=== PATIENT | female | born 1950 | race Caucasian/White ===

== ENCOUNTER 2018-07-31 13:45 | Inpatient (IN) ==
[2018-07-31] MEDS ORDERED: Morphine Inj 4 MG/ML Vial IV.PUSH ONE (14:15)
--- NOTE | 2018-07-31 14:39 | ED ---
HPI General Chief Complaint: Extremity Injury, Upper Stated Complaint: R wrist Time Seen by Provider: 07/31/18 13:53 Source: patient and family Mode of arrival: wheelchair Limitations: no limitations History of Present Illness HPI narrative: Patient is a 68-year-old female that presents for the evaluation of right wrist and left ankle pain after a fall she sustained this afternoon. The patient states that she was out to lunch with her family when she tripped on the sidewalk and rolled her left ankle laterally and fell onto her right wrist. Patient states that she did hit her head on mulch when she fell and her glasses broke which caused a small abrasion on her right upper cheek. The patient's family was present at the time of the fall and are at the bedside with the patient. They state that the patient did not lose consciousness and was able to get right back up after the fall. The patient states that her current pain level is a 10/10 on a pain scale. She states that she is unable to bare weight on the left ankle. She states that she also has a headache that she believes is due to stress. The patient has a history of migraines and states that her current headache does not feel like a migraine. Upon review of symptoms the patient denies chest pain, shortness of breath, nausea, vomiting, numbness or tingling of the extremities. She denies dizziness, blurry vision, or loss of vision. Related Data Home Medications Medication Instructions Recorded Confirmed aspirin, buffered 325 mg PO DAILY 07/31/18 07/31/18 [id number] 50 mg PO DIRECTED 07/31/18 07/31/18 [Esgic] enalapril maleate [Vasotec] 10 mg PO DAILY 07/31/18 07/31/18 Allergies Allergy/AdvReac Type Severity Reaction Status Date / Time No Known Allergies Allergy Verified 07/31/18 14:00 Review of Systems ROS: all other systems reviewed are negative [facility] Medical History Medical History Aftercare following left ankle joint replacement surgery (Acute) CVA (cerebral vascular accident) (Acute) H/O: hysterectomy (Acute) Hypertension (Acute) Left ankle injury (Acute) Stroke (Acute) TIA (transient ischemic attack) (Acute) Surgical History Surgical History Status post hysterectomy (Acute) Status post right knee replacement (Acute) Family History Family History Other Family history of diabetes mellitus Family history of hypertension Social History Social History Substance History: No History of Abuse Second Hand Smoke Exposure: No Smoking Status: Never smoker How Often Do You Have a Drink Containing Alcohol: Never Hx Recent Travel: Yes (From [place]) Recent Travel in [facility] within the Last 8 Weeks: No Recent Out of Country Travel within the Last 8 Weeks: No Immunization History Tetanus Immunization: >5 Years Exam Narrative Exam Narrative: .GENERAL: Well-appearing SKIN: Focused skin assessment warm/dry. HEAD: Atraumatic. Normocephalic. EYES: Pupils equal and round. No scleral icterus. No injection or drainage. ENT: No nasal bleeding or discharge. Mucous membranes pink and moist. Tongue is midline. No uvula deviation. Patient does have some bruising to the right side of the face. Mainly on the right cheek. She does have a superficial cut less than 1/4 cm. NECK: Trachea midline. No JVD. CARDIOVASCULAR: Regular rate and rhythm. No murmur appreciated. RESPIRATORY: No accessory muscle use. Clear to auscultation. Breath sounds equal bilaterally. GASTROINTESTINAL: Abdomen soft, non-tender, nondistended. Hepatic and splenic margins not palpable. MUSCULOSKELETAL: No obvious deformities. No clubbing. No cyanosis. No edema. Patient has obvious deformity with swelling and deformity to the right wrist especially on the medial aspect of it. She does have also soft tissue swelling and pain to palpation on the left lateral malleolus. No medial malleolar pain. Full range of motion of all extremities otherwise. 2+ pulses bilaterally. No lumbar, thoracic, cervical spine tenderness to palpation. NEUROLOGICAL: Awake and alert. No obvious cranial nerve deficits. Motor grossly within normal limits. Normal speech. PSYCHIATRIC: Appropriate mood and affect; insight and judgment normal. Course Initial Documented Vital Signs Temperature 98 F 07/31/18 13:48 Pulse Rate 99 H 07/31/18 13:48 Respiratory Rate 20 07/31/18 13:48 Blood Pressure 199/98 H 07/31/18 13:48 Pulse Oximetry 99 07/31/18 13:48 Last Documented Vital Signs Temperature 98 F 07/31/18 13:48 Pulse Rate 94 H 07/31/18 16:00 Respiratory Rate 18 07/31/18 16:38 Blood Pressure 146/98 H 07/31/18 16:00 Pulse Oximetry 100 07/31/18 16:18 Procedures Orthopedic Fracture Reduction Fracture #1: Time Out Performed: Yes Side: right Fracture Reduction Location: radius Analgesia: procedural sedation Technique: direct manipulation and traction/counter-traction Post Reduction X-rays Demonstrate: anatomical reduction Post-Reduction Neuro Exam: intact Post-Reduction Vascular Exam: intact Splint Applied: Yes Patient Tolerated Procedure: well Procedural Sedation Indications: fracture/dislocation reduction ASA Class: ASA 2 Moderate Systemic Disease Preparation: awake overnight monitor applied, pulse oximeter, capnometry used, supplemental O2 applied, suction/airway equipment at bedside and IV secured IV Propofol Dose (mgs): 60 Patient Tolerated Procedure: well Complications: none Interventions: oxygen applied Medical Decision Making JORDAN Attestation JORDAN supervised visit: Yes Attestation: I, Dr. White, have reviewed the advance practice practitioner's documentation and am in agreement, met with the patient face to face, made the diagnosis, and the medical decision making was done by me. *My assessment and Findings: Patient is 68 years old and arrives with distal radius fracture somewhat comminuted with intra-articular involvement as well as a distal fibula fracture. Case was discussed with periodontist Dr. Becerra, who confirmed the patient is to be nonweightbearing. This leaves here with a distal radius fracture in a sugar tong splint of the right arm with a long posterior splint in the left leg with inability to weight-bear. She is visiting from out of town. She is otherwise healthy. Blood work here is normal. Distal radius fracture reduced at bedside following procedural sedation. Splint applied to the right upper extremity and left leg. Admission for physical therapy and orthopedic consultation. [facility] Narrative Medical decision making narrative: 68-year-old female that presents to the ED for evaluation of fall. Labs and imaging order. Labs and imaging were essentially unremarkable other than for fractures. Mainly to the ankle as well as to the wrist. My attending Dr. White took over case. He recommends reduction of fracture and admission for further eval as patient will not be able to ambulate without assistance due to having fractures on right wrist and left ankle. Please review my attendings' addition to this note. Patient admitted to Dr Crawford who agrees to admission to his service. Medical Screen Exam Complete: Yes Emergency Medical Condition: Yes Differential Diagnosis Differential Diagnosis: Fracture versus sprain versus strain versus bruise versus contusion Medical Records Medical records reviewed: Yes I reviewed the patient's medical records. Lab Data Lab results reviewed: Yes I reviewed the patient's lab results. Result diagrams: 07/31/18 14:15 07/31/18 14:15 Lab Results 07/31/18 07/31/18 Range/Units 14:15 14:15 WBC 5.4 (4.0-11.0) th/mm3 RBC 4.32 (4.00-5.30) mil/mm3 Hgb 12.0 (11.6-15.3) gm/dL Hct 37.0 (35.0-46.0) % MCV 85.6 (80.0-100.0) fL MCH 27.7 (27.0-34.0) pg MCHC 32.4 (32.0-36.0) % RDW 15.2 (11.6-17.2) % Plt Count 260 (150-450) th/mm3 MPV 7.9 (7.0-11.0) fL Neut % (Auto) 49.2 (16.0-70.0) % Lymph % (Auto) 38.7 (9.0-44.0) % [place] % (Auto) 8.1 H (0.0-8.0) % Eos % (Auto) 3.2 (0.0-4.0) % Baso % (Auto) 0.8 (0.0-2.0) % Neut # (Auto) 2.6 (1.8-7.7) th/mm3 Lymph # (Auto) 2.1 (1.0-4.8) th/mm3 [place] # (Auto) 0.4 (0.0-0.9) th/mm3 Eos # (Auto) 0.2 (0.0-0.4) th/mm3 Baso # (Auto) 0.0 (0.0-0.2) th/mm3 WBC Differential . Differential Comment Auto diff final Sodium 141 (136-145) meq/L Potassium 4.2 (3.5-5.1) meq/L Chloride 106 (98-107) meq/L Carbon Dioxide 25.8 (21.0-32.0) meq/L Anion Gap 9 (5-15) meq/L BUN 11 (7-18) mg/dL Creatinine 0.85 (0.50-1.00) mg/dL Estimated GFR 67 L (>89) mL/min Random Glucose 79 (74-106) mg/dL Calcium 8.6 (8.5-10.1) mg/dL Imaging Data Attestation: I personally reviewed and interpreted this imaging study as follows : Radiologist's impression: Ankle X-Ray 07/31/18 14:03 CONCLUSION: Nondisplaced fracture involving the lateral malleolus with soft tissue swelling. Cervical Spine CT 07/31/18 14:03 CONCLUSION: 1. Negative trauma CT cervical spine. Foot X-Ray 07/31/18 14:03 CONCLUSION: No acute fracture or joint dislocation involving the foot. Nondisplaced fracture involving the lateral malleolus. Hand X-Ray 07/31/18 14:03 CONCLUSION: 1. There is an intra-articular fracture involving the distal radius. 2. No acute fracture or joint dislocation is seen involving the hand. 3. There is osteopenia and degenerative changes noted throughout the hand. Head CT 07/31/18 14:03 CONCLUSION: 1. Unremarkable CT scan of the brain . Wrist X-Ray 07/31/18 14:03 CONCLUSION: There is an intra-articular fracture involving the distal radius. Wrist X-Ray 07/31/18 15:21 CONCLUSION: Status post reduction of the previously noted fracture involving the distal radius. There appears to be good alignment of the fracture fragments. Discharge Plan Discharge Disposition Patient Disposition: 30 Still Patient Discharge Condition Condition: Stable Discharge Details Diagnosis: Fracture of wrist, Ankle fracture, left, Fall Physicians Team ED Provider: Steve White ED Midlevel Provider: Honorio Gong Attending Provider: Reg Crawford Other Providers: Buddy Gong Discharge Interventions Interventions: Vital Signs Last Done: 07/31/18 16:00 Status ED Status: Admitted Observation Patient
--- NOTE | 2018-07-31 15:14 | XR ---
EXAM DATE: 07/31/2018 2:03 PM EDT AGE/SEX: 68 years / Female INDICATIONS: Right hand pain post fall CLINICAL DATA: This is the patient's initial encounter. Patient reports that signs and symptoms have been present for 1 day and indicates a pain score of 7/10. MEDICAL/SURGICAL HISTORY: . Total knee replacement, right. COMPARISON: No prior exams available for comparison. FINDINGS: Of the bony structures. The bony structures of the hand appear to be grossly intact. No acute fractur e or joint dislocation of the hand is seen. There are degenerative changes at the first carpometacarp al joint. There does appear to be a intra-articular fracture involving the distal radius. CONCLUSION: 1. There is an intra-articular fracture involving the distal radius. 2. No acute fracture or joint dislocation is seen involving the hand. 3. There is osteopenia and degenerative changes noted throughout the hand. Electronically signed by: Thuan De La Cruz MD 07/31/2018 3:13 PM EDT
--- NOTE | 2018-07-31 15:15 | XR ---
EXAM DATE: 07/31/2018 2:03 PM EDT AGE/SEX: 68 years / Female INDICATIONS: Right wrist pain, post fall. CLINICAL DATA: This is the patient's initial encounter. Patient reports that signs and symptoms have been present for 1 day and indicates a pain score of 10/10. MEDICAL/SURGICAL HISTORY: . Total knee replacement, right. COMPARISON: [facility], HAND COMPLETE RIGHT MIN 3V, 07/31/2018. . FINDINGS: There is osteopenia of the bony structures of the wrist. There is degenerative changes at the first c arpometacarpal joint. There is a fracture involving the distal radius. This appears to involve the ar ticulating surface. The distal ulnar appears to be grossly intact. No joint dislocation. CONCLUSION: There is an intra-articular fracture involving the distal radius. Electronically signed by: Thuan De La Cruz MD 07/31/2018 3:13 PM EDT
--- NOTE | 2018-07-31 15:20 | XR ---
EXAM DATE: 07/31/2018 2:03 PM EDT AGE/SEX: 68 years / Female INDICATIONS: Right ankle pain post fall CLINICAL DATA: This is the patient's initial encounter. Patient reports that signs and symptoms have been present for 1 day and indicates a pain score of 8/10. MEDICAL/SURGICAL HISTORY: . Total knee replacement, right. COMPARISON: No prior exams available for comparison. FINDINGS: There is diffuse soft tissue swelling over the lateral malleolus. There is a nondisplaced fracture in volving the lateral malleolus. There is good alignment at the mortise joint. There is evidence of a p revious placement of an intramedullary alix in the tibia. The rest of the bony structures are grossly intact. CONCLUSION: Nondisplaced fracture involving the lateral malleolus with soft tissue swelling. Electronically signed by: Thuan De La Cruz MD 07/31/2018 3:19 PM EDT
--- NOTE | 2018-07-31 15:22 | XR ---
EXAM DATE: 07/31/2018 2:03 PM EDT AGE/SEX: 68 years / Female INDICATIONS: Left foot pain, post fall CLINICAL DATA: This is the patient's initial encounter. Patient reports that signs and symptoms have been present for 1 day and indicates a pain score of 8/10. MEDICAL/SURGICAL HISTORY: . Total knee replacement, right. COMPARISON: [facility], ANKLE COMPLETE LEFT MIN 3V, 07/31/2018. . FINDINGS: Bony structures are intact and in normal alignment. Osseous density is osteopenic.. Soft tissues of the foot are unremarkable. There is soft tissue swelling along the lateral malleolus. No radiopaque f oreign bodies seen. There is a fracture involving the lateral malleolus. CONCLUSION: No acute fracture or joint dislocation involving the foot. Nondisplaced fracture involving the lateral malleolus. Electronically signed by: Thuan De La Cruz MD 07/31/2018 3:21 PM EDT
[2018-07-31 15:51] LABS: Baso % (Auto) 0.8 % (0.0-2.0); Eos # (Auto) 0.2 th/mm3 (0.0-0.4); Eos % (Auto) 3.2 % (0.0-4.0); Lymph # (Auto) 2.1 th/mm3 (1.0-4.8); Lymph % (Auto) 38.7 % (9.0-44.0); Mean Corpuscular HGB Conc 32.4 % (32.0-36.0); Mean Corpuscular Hemoglobin 27.7 pg (27.0-34.0); Mean Corpuscular Volume 85.6 fL (80.0-100.0); Mean Platelet Volume 7.9 fL (7.0-11.0); Mono # (Auto) 0.4 th/mm3 (0.0-0.9); Mono % (Auto) 8.1 % (0.0-8.0); Neut # (Auto) 2.6 th/mm3 (1.8-7.7); Neut % (Auto) 49.2 % (16.0-70.0); Platelet Count 260 th/mm3 (150-450); Red Blood Count 4.32 mil/mm3 (4.00-5.30); Red Cell Distribution Width 15.2 % (11.6-17.2); White Blood Count 5.4 th/mm3 (4.0-11.0)
[2018-07-31 16:18] LABS: Calcium 8.6 mg/dL (8.5-10.1); Carbon Dioxide 25.8 meq/L (21.0-32.0); Potassium 4.2 meq/L (3.5-5.1)
[2018-07-31] MEDS ORDERED: HYDROmorphone PF Inj 2 MG/ML Vial IV.PUSH ONE (16:28)
--- NOTE | 2018-07-31 16:54 | XR ---
EXAM DATE: 07/31/2018 3:21 PM EDT AGE/SEX: 68 years / Female INDICATIONS: Post reduction. CLINICAL DATA: This is the patient's initial encounter. Patient reports that signs and symptoms have been present for 1 day and indicates a pain score of 5/10. MEDICAL/SURGICAL HISTORY: None. None. COMPARISON: [facility] [place], WRIST COMPLETE RIGHT MIN 3V, 07/31/2018. . FINDINGS: There is now overlying cast material in the region of the wrist. There is improved alignment of the f racture fragments involving the distal radius compared to the prior exam.. There is good alignment at the radial carpal joint. CONCLUSION: Status post reduction of the previously noted fracture involving the distal radius. There appears to be good alignment of the fracture fragments. Electronically signed by: Thuan De La Cruz MD 07/31/2018 4:53 PM EDT
--- NOTE | 2018-07-31 17:14 | CT ---
EXAM DATE: 07/31/2018 3:27 PM EDT AGE/SEX: 68 years / Female INDICATIONS: Tripped and fell. Right forehead bruising. CLINICAL DATA: This is the patient's initial encounter. Patient reports that signs and symptoms have been present for 1 day and indicates a pain score of 10/10. MEDICAL/SURGICAL HISTORY: Hypertension. Hysterectomy. RADIATION DOSE: 66.34 CTDI (mGy) COMPARISON: No prior exams available for comparison. TECHNIQUE: CT of the head without contrast. Using automated exposure control and adjustment of the mA and/or kV according to patient size, radiation dose was kept as low as reasonably achievable to ob tain optimal diagnostic quality images. DICOM format image data is available electronically for revi ew and comparison. FINDINGS: Cerebrum: The ventricles are normal for age. No evidence of midline shift, mass lesion, hemorrhage or acute infarction. No extraaxial fluid collections are seen. Posterior Fossa: The cerebellum and brainstem are intact. The 4th ventricle is midline. The cerebe llopontine angle is unremarkable. Extracranial: The visualized portion of the orbits is intact. Skull: The calvaria is intact. No evidence of skull fracture. CONCLUSION: 1. Unremarkable CT scan of the brain . Electronically signed by: Thuan De La Cruz MD 07/31/2018 5:12 PM EDT
--- NOTE | 2018-07-31 17:22 | CT ---
EXAM DATE: 07/31/2018 3:27 PM EDT AGE/SEX: 68 years / Female INDICATIONS: Tripped and fell. Neck pain. CLINICAL DATA: This is the patient's initial encounter. Patient reports that signs and symptoms have been present for 1 day and indicates a pain score of 10/10. MEDICAL/SURGICAL HISTORY: Hypertension. Hysterectomy. RADIATION DOSE: 20.59 CTDI (mGy) COMPARISON: No prior exams available for comparison. TECHNIQUE: Contiguous axial images were obtained using helical multirow detector technique. The vol umetric data was post-processed with multiplanar reconstruction in oblique axial, sagittal, and coron al planes. Using automated exposure control and adjustment of the mA and/or kV according to patient s ize, radiation dose was kept as low as reasonably achievable to obtain optimal diagnostic quality carolyn ges. DICOM format image data is available electronically for review and comparison. FINDINGS: There is normal alignment of vertebral bodies of the cervical spine and preservation of vertebral viky dy height. No evidence of compression deformity or spondylolisthesis. The atlantoaxial articulation i s intact. The posterior elements are in normal alignment without evidence of locked or perched facets . Mild discogenic degenerative changes are present on the right side at C5-6. C2-3: No fracture seen. The neural foramina are patent. C3-4: No fracture seen. The neural foramina are patent. C4-5: No fracture seen. The neural foramina are patent. C5-6: No fracture seen. The neural foramina are patent. C6-7: No fracture seen. The neural foramina are patent. C7-T1: No fracture seen. The neural foramina are patent. CONCLUSION: 1. Negative trauma CT cervical spine. Electronically signed by: Terry Mcconnell MD 07/31/2018 5:20 PM EDT
[2018-07-31] MEDS ORDERED: Acetaminophen 325 MG Tablet PO PRN ×2 (18:20→18:24)
[2018-07-31] MEDS ORDERED: Bisacodyl 10 MG Supp RECTAL PRN (18:20)
[2018-07-31] MEDS ORDERED: Naloxone Inj 0.4 MG/ML Vial IV.PUSH PRN (18:24)
[2018-07-31] MEDS ORDERED: Morphine Inj 4 MG/ML Vial IV.PUSH PRN ×2 (18:24)
--- NOTE | 2018-07-31 18:40 | P.HPIM ---
History of Present Illness Service: [facility] Primary Care Physician: Kai Ernst Chief Complaint: SP FALL WITH FRACTURE OF RIGHT WRIST AND LEFT ANKLE History of Present Illness: Patient is a 68-year-old female visiting us from [facility]. Who presented to the emergency department after a trip and fall she fell on the right wrist and left ankle pain after falling this afternoon outside the [employer]. Patient states she was going out to lunch with the family when she tripped on the sidewalk rolled her left ankle laterally and fell onto her right wrist. Patient states that she did hit her head on the mulch when she fell and her glasses broke which caused a small abrasion on her right upper cheek. Patient's family was present at the time of the fall. Patient did not lose consciousness was able to get right back up but then pain was 10 out of 10 was on in the a.m. unable to bear weight on her left ankle. Also has a headache. Has history of migraines. Denies any chest pain denies any shortness of breath denies any nausea denies any vomiting denied any nausea nausea denies any numbness or tingling of the extremities. Denies any dizziness or blurry vision or loss of vision Patient states that her mother had diabetes and hypertension Review of Systems All other systems reviewed negative except as stated in HPI PMFSH - History History Provided By: Patient - Medical History Medical History: Medical History (Last Updated 07/31/18 @ 18:34 by Reg Crawford DO) Aftercare following left ankle joint replacement surgery CVA (cerebral vascular accident) H/O: hysterectomy Hypertension Left ankle injury Stroke TIA (transient ischemic attack) - Surgical History Surgical History: Surgical History (Last Updated 07/31/18 @ 18:34 by Reg Crawford DO) Status post hysterectomy Status post right knee replacement - Family History Family History: Family History (Last Updated 07/31/18 @ 18:34 by Reg Crawford DO) Other Family history of diabetes mellitus Family history of hypertension - Social History I have reviewed the patient's Social History: No - Tobacco History Second Hand Smoke Exposure: No Tobacco Use In Past 30 Days: No Smoking Status: Never smoker - Alcohol History How Often Do You Have a Drink Containing Alcohol: Never - Substance Use History Substance History: No History of Abuse - Travel History History of Recent Travel: Yes (From [place]) Recent Travel in the [facility] Within the Last 8 Weeks: No Recent Travel Out of the Country Within the Last 8 Weeks: No - Immunization History Tetanus Immunization: >5 Years Medications and Allergies Active Medications: Active Medications Acetaminophen (Tylenol) 650 mg PO Q4H PRN PRN Reason: Temp > 100.4 Acetaminophen (Tylenol) 650 mg PO Q6H PRN PRN Reason: PAIN SCALE 1 TO 2 Al Hydroxide/Mg Hydroxide (Milk Of Magnesia Liq) 30 ml PO Q12H PRN PRN Reason: Mild Constipation Bisacodyl (Dulcolax Supp) 10 mg RECTAL DAILY PRN PRN Reason: SEVERE CONSITIPATION Enalapril Maleate (Vasotec) 10 mg PO DAILY [facility] Sodium Chloride (Ns Inj) 1,000 mls @ 100 mls/hr IV.CONT .Q10H [facility] Lactulose (Lactulose Liq) 30 ml PO DAILY PRN PRN Reason: SEVERE CONSITIPATION Morphine Sulfate (Morphine Inj) 2 mg IV.PUSH Q3H PRN PRN Reason: PAIN 3-5; IF UABLE TO TAKE PO Morphine Sulfate (Morphine Inj) 4 mg IV.PUSH Q3H PRN PRN Reason: PAIN 6-10;IF UNABLE TO TAKE PO Morphine Sulfate (Morphine Inj) 4 mg IV.PUSH Q3H PRN PRN Reason: BREAKTHROUGH PAIN Morphine Sulfate (Morphine Inj) 4 mg IV.PUSH Q1H PRN PRN Reason: Pain Scale 7-10 (Intractable) Naloxone HCl (Narcan Inj) 0.4 mg IV.PUSH UNSCH PRN PRN Reason: SEE LABEL COMMENTS Non-Formulary Medication (Uxdqvckxkb-Bkiphfiyoloio-Yhzj [Esgic]) 50 mg PO DIRECTED [facility] Ondansetron HCl (Zofran Inj) 4 mg IV.PUSH Q6H PRN PRN Reason: NAUSEA OR VOMITING Oxycodone/Acetaminophen (Percocet 10/325 Mg) 1 tab PO Q6H PRN PRN Reason: PAIN SCALE 6 TO 10 Oxycodone/Acetaminophen (Percocet 5/325 Mg) 1 tab PO Q6H PRN PRN Reason: PAIN SCALE 3 TO 5 Senna/Docusate Sodium (Ella-Colace) 1 tab PO BID [facility] Sennosides (Senokot) 17.2 mg PO Q12H PRN PRN Reason: Moderate Constipation Allergies Allergy/AdvReac Type Severity Reaction Status Date / Time No Known Allergies Allergy Verified 07/31/18 14:00 Home Medications Medication Instructions Recorded Confirmed Type aspirin, buffered 325 mg PO DAILY 07/31/18 07/31/18 History shxmmeyowo-gofiivysmkojx-iyxr 50 mg PO DIRECTED 07/31/18 07/31/18 History [Esgic] enalapril maleate [Vasotec] 10 mg PO DAILY 07/31/18 07/31/18 History Exam Vital signs: Vital Signs 07/31/18 13:48 07/31/18 14:05 07/31/18 16:00 Temperature 98 F Pulse Rate 99 H 96 H 94 H Respiratory Rate 20 18 18 Blood Pressure 199/98 H 159/72 H 146/98 H Pulse Oximetry 99 96 97 07/31/18 16:18 07/31/18 16:38 Temperature Pulse Rate Respiratory Rate 18 Blood Pressure Pulse Oximetry 100 Intake & Output 07/30/18 07/31/18 07/31/18 18:59 06:59 18:59 Weight 81.647 kg Narrative: GENERAL: Awake alert oriented x3 talkative and cooperative SKIN: Warm and dry. HEAD: Atraumatic. Normocephalic. EYES: Pupils equal and round. No scleral icterus. No injection or drainage. ENT: No nasal bleeding or discharge. Mucous membranes pink and moist. NECK: Trachea midline. No JVD. CARDIOVASCULAR: Regular rate and rhythm. S1-S2 no S3-S4 RESPIRATORY: No accessory muscle use. Clear to auscultation. Breath sounds equal bilaterally. GASTROINTESTINAL: Abdomen soft, non-tender, nondistended. Hepatic and splenic margins not palpable. Obese MUSCULOSKELETAL: Extremities without clubbing, cyanosis, or edema. No obvious deformities. Right wrist is dressed in splint and wrapped. Left ankle is wrapped with splint also NEUROLOGICAL: Awake and alert. No obvious cranial nerve deficits. Motor grossly within normal limits. Five out of 5 muscle strength in the arms and legs. Normal speech. PSYCHIATRIC: Appropriate mood and affect; insight and judgment normal. Results - Labs CBC & Chem 7: 07/31/18 14:15 07/31/18 14:15 Labs: Short CBC 07/31/18 Range/Units 14:15 WBC 5.4 (4.0-11.0) th/mm3 Hgb 12.0 (11.6-15.3) gm/dL Hct 37.0 (35.0-46.0) % Plt Count 260 (150-450) th/mm3 BMP 07/31/18 14:15 Sodium 141 Potassium 4.2 Chloride 106 Carbon Dioxide 25.8 BUN 11 Creatinine 0.85 Calcium 8.6 - Imaging Impressions Ankle X-Ray 07/31/18 14:03 CONCLUSION: Nondisplaced fracture involving the lateral malleolus with soft tissue swelling. Cervical Spine CT 07/31/18 14:03 CONCLUSION: 1. Negative trauma CT cervical spine. Foot X-Ray 07/31/18 14:03 CONCLUSION: No acute fracture or joint dislocation involving the foot. Nondisplaced fracture involving the lateral malleolus. Hand X-Ray 07/31/18 14:03 CONCLUSION: 1. There is an intra-articular fracture involving the distal radius. 2. No acute fracture or joint dislocation is seen involving the hand. 3. There is osteopenia and degenerative changes noted throughout the hand. Head CT 07/31/18 14:03 CONCLUSION: 1. Unremarkable CT scan of the brain . Wrist X-Ray 07/31/18 14:03 CONCLUSION: There is an intra-articular fracture involving the distal radius. Wrist X-Ray 07/31/18 15:21 CONCLUSION: Status post reduction of the previously noted fracture involving the distal radius. There appears to be good alignment of the fracture fragments. Caprini VTE Risk Assessment Caprini VTE Risk Assessment: Moderate/High Risk (score >= 2) Caprini Risk Assessment Model: Point Value = 1 Point Value = 2 Point Value = 3 Point Value = 5 Age 41-60 Minor surgery BMI > 25 kg/m2 Swollen legs Varicose veins or History of unexplained or recurrent spontaneous Oral contraceptives or hormone replacement Sepsis (< 1 month) Serious lung disease, including pneumonia (< 1 month) Abnormal pulmonary function Acute myocardial infarction Congestive heart failure (< 1 month) History of inflammatory bowel disease Medical patient at bed rest Age 61-74 Arthroscopic surgery Major open surgery (> 45 min) Laparoscopic surgery (> 45 min) Malignancy Confined to bed (> 72 hours) Immobilizing plaster cast Central venous access Age >= 75 History of VTE Family history of VTE Factor V Leiden Prothrombin [id number] Lupus anticoagulant Anticardiolipin antibodies Elevated serum homocysteine Heparin-induced thrombocytopenia Other congenital or acquired thrombophilia Stroke (< 1 month) Elective arthroplasty Hip, pelvis, or leg fracture Acute spinal cord injury (< 1 month) Prophylaxis Regimen: Total Risk Factor Score Risk Level Prophylaxis Regimen 0-1 Low Early ambulation 2 Moderate Order ONE of the following: *Sequential Compression Device (SCD) *Heparin 5000 units SQ BID 3-4 Higher Order ONE of the following medications: *Heparin 5000 units SQ TID *Enoxaparin/Lovenox 40 mg SQ daily (WT < 150 kg, CrCl > 30 mL/min) *Enoxaparin/Lovenox 30 mg SQ daily (WT < 150 kg, CrCl > 10-29 mL/min) *Enoxaparin/Lovenox 30 mg SQ BID (WT < 150 kg, CrCl > 30 mL/min) AND/OR *Sequential Compression Device (SCD) 5 or more Highest Order ONE of the following medications: *Heparin 5000 units SQ TID (Preferred with Epidurals) *Enoxaparin/Lovenox 40 mg SQ daily (WT < 150 kg, CrCl > 30 mL/min) *Enoxaparin/Lovenox 30 mg SQ daily (WT < 150 kg, CrCl > 10-29 mL/min) *Enoxaparin/Lovenox 30 mg SQ BID (WT < 150 kg, CrCl > 30 mL/min) AND *Sequential Compression Device (SCD) Assessment and Plan - Plan Status post fall due to trip and fall -No obvious syncope Mechanical fall Fracture of right radius status post reduction in the emergency department will consult orthopedics Pain control N.p.o. after midnight in case surgery Fluids Left ankle fracture consult orthopedic surgery Pain control N.p.o. after midnight in case of surgery Fluids Hypertension resume home medications History of CVA/TIA/"brain bleed" hold the aspirin at this time Headaches chronically on Esgic-Plus as needed History of left ankle fracture before with repair in the past Status post hysterectomy at age 32 Pain control DVT and GI prophylaxis GI prophylaxis with Pepcid DVT prophylaxis with SCDs and LAYA hose due to possible need for surgery tomorrow Code Status: Full code Discussed Condition With: RN and patient and family and emergency room PA Discharge Planning: Pending orthopedic intervention and clearance by orthopedics and input from case management and physical therapy and Occupational Therapy
[2018-07-31] MEDS ORDERED: Butalbital/APAP/Caff 50/325/40 MG Tablet PO PRN (18:45)
[2018-07-31] MEDS: Sod Chloride 0.9% Inj 1,000 ML IV.CONT SCH (18:50)
--- NOTE | 2018-07-31 19:03 | XR ---
EXAM DATE: 07/31/2018 12:00 AM EDT AGE/SEX: 68 years / Female INDICATIONS: Cough CLINICAL DATA: This is the patient's initial encounter. Patient reports that signs and symptoms have been present for 1 day and indicates a pain score of 0/10. MEDICAL/SURGICAL HISTORY: None. Total knee replacement, right. COMPARISON: No prior exams available for comparison. FINDINGS: Frontal view of the chest demonstrates an ill-defined area of opacity in the left costophrenic angle causing a loss of delineation of a portion of the lateral left hemidiaphragm. The right lung is clear . The heart is normal in size. Mild tortuosity descending thoracic aorta. CONCLUSION: Subsegmental infiltrate lower lateral left lung. Electronically signed by: Terry Mcconnell MD 07/31/2018 7:02 PM EDT
[2018-07-31 20:03] LABS: Bacteria,Urine Occasional /hpf; Bilirubin,Urine Negative (Negative); Clarity,Urine Clear (Clear); Color,Urine Straw (Yellw/Straw); Glucose,Urine (UA) Negative (Negative); Leukocyte Esterase,Urine Negative (Negative); Nitrite,Urine Negative (Negative); Specific Gravity,Urine 1.005 (1.002-1.035); Squamous Epithelial Cell,Urine 1 /hpf (0-5)
[2018-07-31] MEDS: Morphine Inj 4 MG/ML Vial IV.PUSH PRN (21:17)
[2018-07-31] MEDS: Famotidine 20 MG Tablet PO SCH (21:17)
[2018-07-31] MEDS: Senna/Docusate Sodium 8.6/50 MG Tablet PO SCH (21:18)
[2018-07-31] MEDS: oxyCODONE/Acetaminophen 10/325 Tablet PO PRN (22:17)
[2018-08-01] MEDS: Morphine Inj 4 MG/ML Vial IV.PUSH PRN ×2 (00:27→04:38)
[2018-08-01 00:30] VITALS: RESP 18
[2018-08-01 04:34] LABS: Baso # (Auto) 0.1 th/mm3 (0.0-0.2); Baso % (Auto) 2.2 % (0.0-2.0); Eos # (Auto) 0.1 th/mm3 (0.0-0.4); Eos % (Auto) 2.4 % (0.0-4.0); Hemoglobin 11.3 gm/dL (11.6-15.3); Lymph # (Auto) 1.5 th/mm3 (1.0-4.8); Lymph % (Auto) 27.1 % (9.0-44.0); Mean Corpuscular HGB Conc 32.3 % (32.0-36.0); Mean Corpuscular Hemoglobin 28.1 pg (27.0-34.0); Mean Platelet Volume 7.4 fL (7.0-11.0); Mono # (Auto) 0.4 th/mm3 (0.0-0.9); Mono % (Auto) 6.9 % (0.0-8.0); Neut # (Auto) 3.4 th/mm3 (1.8-7.7); Neut % (Auto) 61.4 % (16.0-70.0); Platelet Count 227 th/mm3 (150-450); Red Blood Count 4.02 mil/mm3 (4.00-5.30); Red Cell Distribution Width 15.6 % (11.6-17.2); White Blood Count 5.5 th/mm3 (4.0-11.0)
[2018-08-01 04:42] LABS: INR 1.1 Ratio; Prothrombin Time 10.9 sec (9.8-11.6)
[2018-08-01] MEDS: Sod Chloride 0.9% Inj 1,000 ML IV.CONT SCH (04:44)
[2018-08-01 04:59] LABS: Albumin 3.1 g/dL (3.4-5.0); Anion Gap 9 meq/L (5-15); Blood Urea Nitrogen 7 mg/dL (7-18); Calcium 7.8 mg/dL (8.5-10.1); Carbon Dioxide 24.4 meq/L (21.0-32.0); Chloride 107 meq/L (98-107); Glomerular Filtration Rate 62 mL/min (>89); Glucose,Random 106 mg/dL (74-106); Magnesium 2.1 mg/dL (1.5-2.5); Potassium 4.4 meq/L (3.5-5.1); Sodium 140 meq/L (136-145)
[2018-08-01] MEDS ORDERED: Chlorhexidine Gluconate 2% 1 Pack (2 Cloths) TOPICAL ONE (04:59)
[2018-08-01 05:00] LABS: Alanine Aminotransferase 18 U/L (10-53); Aspartate Aminotransferase 17 U/L (15-37); Cholesterol 195 mg/dL (120-200); Triglycerides 156 mg/dL (42-150)
[2018-08-01] MEDS ORDERED: Sodium Chlor 0.9% Inj 500 ML IV.SIG SCH (05:00)
[2018-08-01 05:09] LABS: Alkaline Phosphatase 141 U/L (45-117); Chol/HDL Ratio 2.91 Ratio; Free T4 (Free Thyroxine) 0.59 ng/dL (0.76-1.46); LDL Cholesterol,Calculated 97 mg/dL (0-99); Total Protein 6.7 g/dL (6.4-8.2)
[2018-08-01 05:27] LABS: Platelet Estimate Normal (Normal); Platelet Morphology Normal (Normal); RBC Morphology Normal (Normal)
--- NOTE | 2018-08-01 07:28 | P.CONOP ---
[facility] Orthopedics Consult Note - [facility] Consult date: 08/01/18 Consult reason: fracture Chief complaint: LEFT ANKLE FRACTURE, RIGHT WRIST FRACTURE Narrative: Patient is a 68-year-old white female who presents to the hospital after suffering a fall. She states she twisted her ankle and fell and landed on her right wrist. She reports left ankle pain and right wrist pain. She states that she is visiting from [place]. She reports a history of a left tibial fracture which required intramedullary nailing. Overall she states she is resting comfortably. She denies any numbness, tingling, loss of sensation. Denies any shortness of breath or loss of consciousness. Denies any fevers. States that the pain is primarily in her left ankle and right wrist. She states she has been unable to ambulate since the incident. Overall, she is resting comfortably. <Vernon Diallo - Last Filed: 08/01/18 07:22> Review of Systems Patient denies any fevers, weight loss, headache, visual changes, hearing loss, chest pain, palpitations, shortness of breath, nausea, vomiting, urinary changes , neck or back pain, skin rashes, weakness or numbness of extremities, or depression. All other systems reviewed negative except as stated in [facility] <Vernon Diallo - Last Filed: 08/01/18 07:22> [facility] - History History Provided By: Patient - Medical History Medical History: Medical History (Last Reviewed 08/01/18 @ 07:24 by JUAN Potts) Aftercare following left ankle joint replacement surgery CVA (cerebral vascular accident) H/O: hysterectomy Hypertension Left ankle injury Stroke TIA (transient ischemic attack) - Surgical History Surgical History: Surgical History (Last Reviewed 08/01/18 @ 07:24 by JUAN Potts) Status post hysterectomy Status post right knee replacement - Family History Family History: Family History (Last Reviewed 08/01/18 @ 07:24 by JUAN Potts) Other Family history of diabetes mellitus Family history of hypertension - Tobacco History Second Hand Smoke Exposure: No Tobacco Use In Past 30 Days: No Smoking Status: Never smoker - Alcohol History How Often Do You Have a Drink Containing Alcohol: Monthly or less - Substance Use History Substance History: No History of Abuse - Travel History History of Recent Travel: Yes (From [place]) Recent Travel in the [place] Within the Last 8 Weeks: No Recent Travel Out of the Country Within the Last 8 Weeks: No - Immunization History Tetanus Immunization: Unsure Hx Influenza Vaccine This Season: No <Vernon Diallo - Last Filed: 08/01/18 07:22> - Medical History Medical History: Medical History (Last Reviewed 08/01/18 @ 07:24 by JUAN Potts) Aftercare following left ankle joint replacement surgery CVA (cerebral vascular accident) H/O: hysterectomy Hypertension Left ankle injury Stroke TIA (transient ischemic attack) - Surgical History Surgical History: Surgical History (Last Reviewed 08/01/18 @ 07:24 by JUAN Potts) Status post hysterectomy Status post right knee replacement - Family History Family History: Family History (Last Reviewed 08/01/18 @ 07:24 by JUAN Potts) Other Family history of diabetes mellitus Family history of hypertension <Jaron Mccain - Last Filed: 08/02/18 08:51> Medications and Allergies Active Medications: Active Medications Acetaminophen (Tylenol) 650 mg PO Q4H PRN PRN Reason: Temp > 100.4 Acetaminophen (Tylenol) 650 mg PO Q6H PRN PRN Reason: PAIN SCALE 1 TO 2 Acetaminophen/Butalbital/Caffeine (Fioricet 50-325-40) 1 tab PO Q6H PRN PRN Reason: HEADACHE Al Hydroxide/Mg Hydroxide (Milk Of Magnesia Liq) 30 ml PO Q12H PRN PRN Reason: Mild Constipation Bisacodyl (Dulcolax Supp) 10 mg RECTAL DAILY PRN PRN Reason: SEVERE CONSITIPATION Enalapril Maleate (Vasotec) 10 mg PO DAILY [facility] Famotidine (Pepcid) 20 mg PO BID [facility] Last Admin: 07/31/18 21:17 Dose: 20 mg Sodium Chloride (Ns Inj) 1,000 mls @ 100 mls/hr IV.CONT .Q10H [facility] Last Admin: 08/01/18 04:44 Dose: Not Given Lactated Ringer's (Lr 1000 Ml Inj) 1,000 mls @ 30 mls/hr IV.SIG .Q24H [facility]OR[facility] Stop: 08/02/18 04:59 Sodium Chloride (Ns Inj) 500 mls @ 30 mls/hr IV.SIG .Q10H [facility] Lactulose (Lactulose Liq) 30 ml PO DAILY PRN PRN Reason: SEVERE CONSITIPATION Morphine Sulfate (Morphine Inj) 2 mg IV.PUSH Q3H PRN PRN Reason: PAIN 3-5; IF UABLE TO TAKE PO Morphine Sulfate (Morphine Inj) 4 mg IV.PUSH Q3H PRN PRN Reason: PAIN 6-10;IF UNABLE TO TAKE PO Last Admin: 08/01/18 04:38 Dose: 4 mg Morphine Sulfate (Morphine Inj) 4 mg IV.PUSH Q3H PRN PRN Reason: BREAKTHROUGH PAIN Morphine Sulfate (Morphine Inj) 4 mg IV.PUSH Q1H PRN PRN Reason: Pain Scale 7-10 (Intractable) Naloxone HCl (Narcan Inj) 0.4 mg IV.PUSH UNSCH PRN PRN Reason: SEE LABEL COMMENTS Ondansetron HCl (Zofran Inj) 4 mg IV.PUSH Q6H PRN PRN Reason: NAUSEA OR VOMITING Oxycodone/Acetaminophen (Percocet 10/325 Mg) 1 tab PO Q6H PRN PRN Reason: PAIN SCALE 6 TO 10 Last Admin: 07/31/18 22:17 Dose: 1 tab Oxycodone/Acetaminophen (Percocet 5/325 Mg) 1 tab PO Q6H PRN PRN Reason: PAIN SCALE 3 TO 5 Senna/Docusate Sodium (Ella-Colace) 1 tab PO BID [facility] Last Admin: 07/31/18 21:18 Dose: Not Given Sennosides (Senokot) 17.2 mg PO Q12H PRN PRN Reason: Moderate Constipation <Vernon Diallo - Last Filed: 08/01/18 07:22> Active Medications: Active Medications Acetaminophen (Tylenol) 650 mg PO Q4H PRN PRN Reason: Temp > 100.4 Acetaminophen (Tylenol) 650 mg PO Q6H PRN PRN Reason: PAIN SCALE 1 TO 2 Acetaminophen/Butalbital/Caffeine (Fioricet 50-325-40) 1 tab PO Q6H PRN PRN Reason: HEADACHE Al Hydroxide/Mg Hydroxide (Milk Of Magnesia Liq) 30 ml PO Q12H PRN PRN Reason: Mild Constipation Bisacodyl (Dulcolax Supp) 10 mg RECTAL DAILY PRN PRN Reason: SEVERE CONSITIPATION Enalapril Maleate (Vasotec) 10 mg PO DAILY [facility] Last Admin: 08/01/18 07:45 Dose: 10 mg Famotidine (Pepcid) 20 mg PO BID [facility] Last Admin: 08/01/18 07:45 Dose: 20 mg Sodium Chloride (Ns Inj) 1,000 mls @ 100 mls/hr IV.CONT .Q10H [facility] Last Infusion: 08/01/18 04:50 Dose: Infused Sodium Chloride (Ns Inj) 500 mls @ 30 mls/hr IV.SIG .Q10H [facility] Last Admin: 08/01/18 10:43 Dose: Not Given Lactulose (Lactulose Liq) 30 ml PO DAILY PRN PRN Reason: SEVERE CONSITIPATION Morphine Sulfate (Morphine Inj) 2 mg IV.PUSH Q3H PRN PRN Reason: PAIN 3-5; IF UABLE TO TAKE PO Last Admin: 08/01/18 14:23 Dose: 2 mg Morphine Sulfate (Morphine Inj) 4 mg IV.PUSH Q3H PRN PRN Reason: PAIN 6-10;IF UNABLE TO TAKE PO Last Admin: 08/01/18 04:38 Dose: 4 mg Morphine Sulfate (Morphine Inj) 4 mg IV.PUSH Q3H PRN PRN Reason: BREAKTHROUGH PAIN Morphine Sulfate (Morphine Inj) 4 mg IV.PUSH Q1H PRN PRN Reason: Pain Scale 7-10 (Intractable) Naloxone HCl (Narcan Inj) 0.4 mg IV.PUSH UNSCH PRN PRN Reason: SEE LABEL COMMENTS Ondansetron HCl (Zofran Inj) 4 mg IV.PUSH Q6H PRN PRN Reason: NAUSEA OR VOMITING Oxycodone/Acetaminophen (Percocet 10/325 Mg) 1 tab PO Q6H PRN PRN Reason: PAIN SCALE 6 TO 10 Last Admin: 08/01/18 13:14 Dose: 1 tab Oxycodone/Acetaminophen (Percocet 5/325 Mg) 1 tab PO Q6H PRN PRN Reason: PAIN SCALE 3 TO 5 Senna/Docusate Sodium (Ella-Colace) 1 tab PO BID [facility] Last Admin: 08/01/18 07:45 Dose: 1 tab Sennosides (Senokot) 17.2 mg PO Q12H PRN PRN Reason: Moderate Constipation <Jaron Mccain - Last Filed: 08/02/18 08:51> Allergies Allergy/AdvReac Type Severity Reaction Status Date / Time Sulfa (Sulfonamide Allergy Anaphylaxis Verified 07/31/18 22:41 Antibiotics) Home Medications Medication Instructions Recorded Confirmed Type aspirin, buffered 325 mg PO DAILY 07/31/18 07/31/18 History hunzivonpj-[id number] 50 mg PO DIRECTED 07/31/18 07/31/18 History [Esgic] enalapril maleate [Vasotec] 10 mg PO DAILY 07/31/18 07/31/18 History Exam Vital signs: Vital Signs 07/31/18 13:48 07/31/18 14:05 07/31/18 16:00 Temperature 98 F Pulse Rate 99 H 96 H 94 H Respiratory Rate 20 18 18 Blood Pressure 199/98 H 159/72 H 146/98 H Pulse Oximetry 99 96 97 07/31/18 16:18 07/31/18 16:38 07/31/18 18:49 Temperature Pulse Rate 93 H Respiratory Rate 18 18 Blood Pressure 116/59 L Pulse Oximetry 100 96 07/31/18 18:50 07/31/18 19:24 07/31/18 20:00 Temperature 98.0 F Pulse Rate 107 H 85 Respiratory Rate 18 18 18 Blood Pressure 117/59 L 139/65 Pulse Oximetry 96 95 07/31/18 21:24 07/31/18 22:47 08/01/18 00:00 Temperature 97.8 F Pulse Rate 98 H Respiratory Rate 19 18 17 Blood Pressure 118/69 Pulse Oximetry 95 08/01/18 00:29 08/01/18 04:00 08/01/18 04:44 Temperature 97.9 F Pulse Rate 86 Respiratory Rate 18 17 18 Blood Pressure 133/58 L Pulse Oximetry 95 Intake & Output 07/31/18 08/01/18 08/01/18 18:59 06:59 18:59 Weight 81.647 kg 81.64 kg Other: # Voids 1 Weight On Admission 81.647 kg Narrative: General: Well-developed and well-nourished. Resting comfortably in no acute distress Head: Normocephalic and atraumatic Ears: Hearing is intact bilaterally Eyes: Extraocular motion is intact. Pupils are equal round and reactive to light. Neck: No evidence of lymphadenopathy Cranial nerve: II-XII grossly intact Lungs: No use of accessory muscles or breathing and no audible wheezes at bedside Heart: No grade 4 murmur present at bedside Abdomen: Soft and nontender. Musculoskeletal: LLE: Short leg splint is present and in good repair. She has good motion of her hip and knee with minimal discomfort. She has full sensation distally with free movement of her toes. RLE: Full movement of the hip, knee, ankle and toes with no pain. Full sensation distally. RUE: Sugar tong splint is present and in good repair. She has noticeable swelling and stiffness of her fingers. However, full sensation in median and ulnar nerve distribution. Full movement of the shoulder with minimal discomfort. LUE: Full movement of the shoulder, elbow, wrist and fingers with minimal discomfort. Full sensation in median and ulnar nerve distribution <Vernon Diallo - Last Filed: 08/01/18 07:22> Vital signs: Vital Signs 08/01/18 09:40 08/01/18 13:29 Temperature 97.9 F Pulse Rate 77 Respiratory Rate 18 Blood Pressure 105/55 L Pulse Oximetry 98 92 L Intake & Output 08/01/18 08/02/18 08/02/18 18:59 06:59 18:59 Other: Date of Last Bowel Movement 07/31/18 <Jaron Mccain - Last Filed: 08/02/18 08:51> Results - Labs Result Diagrams: 08/01/18 04:18 08/01/18 04:18 Labs: Laboratory Results - last 24 hr 07/31/18 07/31/18 07/31/18 14:15 14:15 19:30 WBC 5.4 RBC 4.32 Hgb 12.0 Hct 37.0 MCV 85.6 MCH 27.7 MCHC 32.4 RDW 15.2 Plt Count 260 MPV 7.9 Prelim Diff (Auto) Neut % (Auto) 49.2 Lymph % (Auto) 38.7 [place] % (Auto) 8.1 H Eos % (Auto) 3.2 Baso % (Auto) 0.8 Neut # (Auto) 2.6 Lymph # (Auto) 2.1 [place] # (Auto) 0.4 Eos # (Auto) 0.2 Baso # (Auto) 0.0 WBC Differential . Diff Scan Differential Comment Auto diff final Platelet Estimate Platelet Morphology RBC Morphology PT INR Sodium 141 Potassium 4.2 Chloride 106 Carbon Dioxide 25.8 Anion Gap 9 BUN 11 Creatinine 0.85 Estimated GFR 67 L Random Glucose 79 Calcium 8.6 Phosphorus Magnesium Total Bilirubin AST ALT Alkaline Phosphatase Total Protein Albumin Triglycerides Cholesterol LDL Cholesterol, Calc HDL Cholesterol Cholesterol/HDL Ratio TSH Free T4 Urine Color Straw Urine Clarity Clear Urine pH 5.0 Ur Specific [place] 1.005 Urine Protein Negative Urine Glucose (UA) Negative Urine Ketones Negative Urine Occult Blood Negative Urine Nitrate Negative Urine Bilirubin Negative Urine Urobilinogen Less than 2 Ur Leukocyte Esterase Negative Urine RBC Less than 1 Urine WBC 1 Ur Squamous Epith Cells 1 Urine Bacteria Occasional H Micro UA Comment Culture not ind Ur Microscopic Review Not Reportable Urine Culture Comments Culture not ind 08/01/18 08/01/18 08/01/18 04:18 04:18 04:18 WBC 5.5 RBC 4.02 Hgb 11.3 L Hct 35.0 MCV 87.0 MCH 28.1 MCHC 32.3 RDW 15.6 Plt Count 227 MPV 7.4 Prelim Diff (Auto) Slide review pending Neut % (Auto) 61.4 Lymph % (Auto) 27.1 [place] % (Auto) 6.9 Eos % (Auto) 2.4 Baso % (Auto) 2.2 H Neut # (Auto) 3.4 Lymph # (Auto) 1.5 [place] # (Auto) 0.4 Eos # (Auto) 0.1 Baso # (Auto) 0.1 WBC Differential . Diff Scan Auto diff confirmed Differential Comment . Platelet Estimate Normal Platelet Morphology Normal RBC Morphology Normal PT 10.9 INR 1.1 Sodium 140 Potassium 4.4 Chloride 107 Carbon Dioxide 24.4 Anion Gap 9 BUN 7 Creatinine 0.91 Estimated GFR 62 L Random Glucose 106 Calcium 7.8 L D Phosphorus 3.0 Magnesium 2.1 Total Bilirubin 0.1 L AST 17 ALT 18 Alkaline Phosphatase 141 H Total Protein 6.7 Albumin 3.1 L Triglycerides 156 H Cholesterol 195 LDL Cholesterol, Calc 97 HDL Cholesterol 67.0 H Cholesterol/HDL Ratio 2.91 TSH 12.000 H Free T4 0.59 L Urine Color Urine Clarity Urine pH Ur Specific [place] Urine Protein Urine Glucose (UA) Urine Ketones Urine Occult Blood Urine Nitrate Urine Bilirubin Urine Urobilinogen Ur Leukocyte Esterase Urine RBC Urine WBC Ur Squamous Epith Cells Urine Bacteria Micro UA Comment Ur Microscopic Review Urine Culture Comments - Diagnostic results Imaging: Impressions Chest X-Ray 07/31/18 00:00 CONCLUSION: Subsegmental infiltrate lower lateral left lung. Ankle X-Ray 07/31/18 14:03 CONCLUSION: Nondisplaced fracture involving the lateral malleolus with soft tissue swelling. Cervical Spine CT 07/31/18 14:03 CONCLUSION: 1. Negative trauma CT cervical spine. Foot X-Ray 07/31/18 14:03 CONCLUSION: No acute fracture or joint dislocation involving the foot. Nondisplaced fracture involving the lateral malleolus. Hand X-Ray 07/31/18 14:03 CONCLUSION: 1. There is an intra-articular fracture involving the distal radius. 2. No acute fracture or joint dislocation is seen involving the hand. 3. There is osteopenia and degenerative changes noted throughout the hand. Head CT 07/31/18 14:03 CONCLUSION: 1. Unremarkable CT scan of the brain . Wrist X-Ray 07/31/18 14:03 CONCLUSION: There is an intra-articular fracture involving the distal radius. Wrist X-Ray 07/31/18 15:21 CONCLUSION: Status post reduction of the previously noted fracture involving the distal radius. There appears to be good alignment of the fracture fragments. Wrist/Hand x-ray: image reviewed Ankle/Foot x-ray: image reviewed <Vernon Diallo - Last Filed: 08/01/18 07:22> - Labs Result Diagrams: 08/01/18 04:18 08/01/18 04:18 Labs: Laboratory Results - last 24 hr 08/01/18 04:18 Hemoglobin A1c 5.8 <Jaron Mccain - Last Filed: 08/02/18 08:51> Assessment and Plan - Assessment and Plan 1) Nondisplaced Distal Fibula fracture - nonop 2) Minimally displaced Right Distal Radius fracture - nonop -Treatment options were discussed with the patient. It appears that she is suffered a nondisplaced fracture of her left distal fibula as well as a minimally displaced right distal radius fracture. Overall, these fractures are well aligned and should do well with conservative management. At this point I would recommend that the splint on the left ankle be discontinued and she will be placed into a fracture boot. She will be allowed to fully weight-bear on the left leg while wearing the fracture boot. She will maintain her sugar tong splint on the right wrist. She will remain nonweightbearing to the right wrist. However, she will be able to use a platform walker. I informed the patient that as she is from [place], she needs to follow-up with orthopedic surgeon next week for evaluation. Assuming that the fractures maintain her current alignment, she should do well with conservative management. However, if her wrist fracture does happen to subside her shift, it could require surgical intervention. She is orthopedically cleared for discharge soon as she is ambulating safely. She will follow-up at home next week. The patient is in agreement with this plan. The above patient was reviewed and discussed with Dr. Mccain and he agrees with the above dictation. <Vernon Diallo - Last Filed: 08/01/18 07:22> - Assessment and Plan History, past medical history, social history, review of systems, physical exam, radiographs, assessment, and plan were reviewed. Plan of care was discussed and established. Plan on nonoperative treatment. A mid-level provider in my office (nurse practitioner or physician assistant associate professor) may see this patient on follow-up visits and continue to implement the objectives of this plan including: Starting or adjusting medications, injections, cast application , orthotics, brace application, physical therapy, radiological studies ( including x-ray, MRI, CT, ultrasound, bone scan), vascular studies, neurologic studies, specialist consultation, and proceeding with surgical management, as appropriate. <Jaron Mccain - Last Filed: 08/02/18 08:51>
[2018-08-01] MEDS: oxyCODONE/Acetaminophen 10/325 Tablet PO PRN ×2 (07:32→13:14)
[2018-08-01] MEDS: Senna/Docusate Sodium 8.6/50 MG Tablet PO SCH (07:45)
[2018-08-01] MEDS: Famotidine 20 MG Tablet PO SCH (07:45)
[2018-08-01] MEDS: Morphine Sulfate Inj 2 MG/ML Vial IV.PUSH PRN ×3 (08:29→14:23)
--- NOTE | 2018-08-01 09:30 | P.PNIM ---
Subjective Interval history: Complained of pain over the right ankle and left arm. Wants to go home if possible today. Will be following up with Dr. Salvador later this week. Will be staying in [place] through this Wednesday and not be returning home to [place] right away Physical Exam Vital signs: Vital Signs 07/31/18 13:48 07/31/18 14:05 07/31/18 16:00 Temperature 98 F Pulse Rate 99 H 96 H 94 H Respiratory Rate 20 18 18 Blood Pressure 199/98 H 159/72 H 146/98 H Pulse Oximetry 99 96 97 07/31/18 16:18 07/31/18 16:38 07/31/18 18:49 Temperature Pulse Rate 93 H Respiratory Rate 18 18 Blood Pressure 116/59 L Pulse Oximetry 100 96 07/31/18 18:50 07/31/18 19:24 07/31/18 20:00 Temperature 98.0 F Pulse Rate 107 H 85 Respiratory Rate 18 18 18 Blood Pressure 117/59 L 139/65 Pulse Oximetry 96 95 07/31/18 21:24 07/31/18 22:47 08/01/18 00:00 Temperature 97.8 F Pulse Rate 98 H Respiratory Rate 19 18 17 Blood Pressure 118/69 Pulse Oximetry 95 08/01/18 00:29 08/01/18 04:00 08/01/18 04:44 Temperature 97.9 F Pulse Rate 86 Respiratory Rate 18 17 18 Blood Pressure 133/58 L Pulse Oximetry 95 Intake & Output 07/31/18 08/01/18 08/01/18 18:59 06:59 18:59 Weight 81.647 kg 81.64 kg Other: # Voids 1 Weight On Admission 81.647 kg Narrative: GENERAL: This is a well-nourished, well-developed patient, in no apparent distress. CARDIOVASCULAR: Regular rate and rhythm RESPIRATORY: Clear to auscultation. Breath sounds equal bilaterally. No wheezes , rales, or rhonchi. GASTROINTESTINAL: Abdomen soft, non-tender, nondistended. Normal active bowel sounds MUSCULOSKELETAL: Right upper arm in sugar times splint ,left lower extremity in splint with bandage clean dry intact NEURO: Alert & Oriented x4 to person, place, time, situation. Results - Labs CBC & Chem 7: 08/01/18 04:18 10/08/18 04:18 Laboratory Results - last 24 hr 07/31/18 07/31/18 07/31/18 14:15 14:15 19:30 WBC 5.4 RBC 4.32 Hgb 12.0 Hct 37.0 MCV 85.6 MCH 27.7 MCHC 32.4 RDW 15.2 Plt Count 260 MPV 7.9 Prelim Diff (Auto) Neut % (Auto) 49.2 Lymph % (Auto) 38.7 [place] % (Auto) 8.1 H Eos % (Auto) 3.2 Baso % (Auto) 0.8 Neut # (Auto) 2.6 Lymph # (Auto) 2.1 [place] # (Auto) 0.4 Eos # (Auto) 0.2 Baso # (Auto) 0.0 WBC Differential . Diff Scan Differential Comment Auto diff final Platelet Estimate Platelet Morphology RBC Morphology PT INR Sodium 141 Potassium 4.2 Chloride 106 Carbon Dioxide 25.8 Anion Gap 9 BUN 11 Creatinine 0.85 Estimated GFR 67 L Random Glucose 79 Calcium 8.6 Phosphorus Magnesium Total Bilirubin AST ALT Alkaline Phosphatase Total Protein Albumin Triglycerides Cholesterol LDL Cholesterol, Calc HDL Cholesterol Cholesterol/HDL Ratio TSH Free T4 Urine Color Straw Urine Clarity Clear Urine pH 5.0 Ur Specific [place] 1.005 Urine Protein Negative Urine Glucose (UA) Negative Urine Ketones Negative Urine Occult Blood Negative Urine Nitrate Negative Urine Bilirubin Negative Urine Urobilinogen Less than 2 Ur Leukocyte Esterase Negative Urine RBC Less than 1 Urine WBC 1 Ur Squamous Epith Cells 1 Urine Bacteria Occasional H Micro UA Comment Culture not ind Ur Microscopic Review Not Reportable Urine Culture Comments Culture not ind 08/01/18 08/01/18 08/01/18 04:18 04:18 04:18 WBC 5.5 RBC 4.02 Hgb 11.3 L Hct 35.0 MCV 87.0 MCH 28.1 MCHC 32.3 RDW 15.6 Plt Count 227 MPV 7.4 Prelim Diff (Auto) Slide review pending Neut % (Auto) 61.4 Lymph % (Auto) 27.1 [place] % (Auto) 6.9 Eos % (Auto) 2.4 Baso % (Auto) 2.2 H Neut # (Auto) 3.4 Lymph # (Auto) 1.5 [place] # (Auto) 0.4 Eos # (Auto) 0.1 Baso # (Auto) 0.1 WBC Differential . Diff Scan Auto diff confirmed Differential Comment . Platelet Estimate Normal Platelet Morphology Normal RBC Morphology Normal PT 10.9 INR 1.1 Sodium 140 Potassium 4.4 Chloride 107 Carbon Dioxide 24.4 Anion Gap 9 BUN 7 Creatinine 0.91 Estimated GFR 62 L Random Glucose 106 Calcium 7.8 L D Phosphorus 3.0 Magnesium 2.1 Total Bilirubin 0.1 L AST 17 ALT 18 Alkaline Phosphatase 141 H Total Protein 6.7 Albumin 3.1 L Triglycerides 156 H Cholesterol 195 LDL Cholesterol, Calc 97 HDL Cholesterol 67.0 H Cholesterol/HDL Ratio 2.91 TSH 12.000 H Free T4 0.59 L Urine Color Urine Clarity Urine pH Ur Specific [place] Urine Protein Urine Glucose (UA) Urine Ketones Urine Occult Blood Urine Nitrate Urine Bilirubin Urine Urobilinogen Ur Leukocyte Esterase Urine RBC Urine WBC Ur Squamous Epith Cells Urine Bacteria Micro UA Comment Ur Microscopic Review Urine Culture Comments - Imaging Impressions Chest X-Ray 07/31/18 00:00 CONCLUSION: Subsegmental infiltrate lower lateral left lung. Ankle X-Ray 07/31/18 14:03 CONCLUSION: Nondisplaced fracture involving the lateral malleolus with soft tissue swelling. Cervical Spine CT 07/31/18 14:03 CONCLUSION: 1. Negative trauma CT cervical spine. Foot X-Ray 07/31/18 14:03 CONCLUSION: No acute fracture or joint dislocation involving the foot. Nondisplaced fracture involving the lateral malleolus. Hand X-Ray 07/31/18 14:03 CONCLUSION: 1. There is an intra-articular fracture involving the distal radius. 2. No acute fracture or joint dislocation is seen involving the hand. 3. There is osteopenia and degenerative changes noted throughout the hand. Head CT 07/31/18 14:03 CONCLUSION: 1. Unremarkable CT scan of the brain . Wrist X-Ray 07/31/18 14:03 CONCLUSION: There is an intra-articular fracture involving the distal radius. Wrist X-Ray 07/31/18 15:21 CONCLUSION: Status post reduction of the previously noted fracture involving the distal radius. There appears to be good alignment of the fracture fragments. Assessment and Plan - Plan Status post fall due to trip and mechanical fall Fracture of right radius status post reduction in the emergency department - status post evaluation with orthopedic surgery who is recommending nonsurgical intervention at this time. Continue with pain control and nonweightbearing and follow-up with orthopedic surgery, Dr. Salvador this week. Left distal fib fracturenonweightbearing with nonsurgical intervention per orthopedic surgery. Continue pain control Hypertension, chronic essential resume home medications Discharge patient to home if pain control and cleared by physical therapy today Condition on discharge: Improved Heart healthy diet as tolerated Nonweightbearing over the left right lower extremity and right upper arm Rx written: Nicole 5 Follow-up with primary care physician Follow-up with Dr. Salvador [facility] Prescription Drug Monitoring Database has been queried and verified prior to prescribing the controlled subsection. Patient is having significant pain caused by [fracture of the right distal radial and left distal fibula which will last more than 3 days. Trial of alternative treatment options other than prescribed opioids has not helped. I believe that it is medically necessary to treat the patients pain because it is affecting patients ability to 's sleep and perform activities of daily living.
[2018-08-01 13:30] VITALS: BP 105/55; PULSE 77; TEMP 97.9; O2SAT 92
[2018-08-01 15:49] LABS: Hemoglobin A1c 5.8 % (4.3-6.0)
--- NOTE | 2018-08-01 16:59 | ECG ---
Date Performed: 08/01/2018 Time Performed: 06:06:38 PTAGE: 68 years EKG: Atrial fibrillation Extensive T wave changes are nonspecific Low QRS voltages in precordial leads Abnormal ECG NO PREVIOUS TRACING DOCTOR: Mare Driscoll Interpretating Date/Time 08/01/2018 16:58:52
== END 2018-08-01 16:13 | disposition home or self-care (01) ==
LOC: NEDA 13:45 → NEPC 13:45 → NEDA 20:07 → N06 20:24
PROVIDERS: ADMIT Family Medicine; ATTEND Family Medicine